=== PATIENT | male | born 1995 | race African-American/Black ===

== ENCOUNTER 2018-05-13 19:30 | Inpatient (IN) | payer OTHER ==
[~2018-05-13] VITALS: Ht 185.4 cm; Wt 81.6 kg
[~2018-05-13 19:30] MED LIST: ASPIRIN 81 MG CHEW TAB PO ONE; ONDANSETRON HCL INJ 2 MG/ML VIAL IV STA; SODIUM CHLORIDE 0.9% 1000ML 1,000 ML IV STA
[2018-05-13] MEDS ORDERED: SODIUM CHLORIDE 0.9% 1000ML 1,000 ML IV STA (19:32)
[2018-05-13] MEDS ORDERED: DICYCLOMINE HCL 20 MG/2 ML VIAL IM ONE (19:45)
[2018-05-13 20:35] LABS: BASOPHILS # (AUTO) 0.1 (0.0-0.1); BASOPHILS % 0.4 % (0.0-1.0); HEMATOCRIT 49.8 % (38.2-49.6); HEMOGLOBIN 17.3 g/dL (14.0-18.0); LYMPHOCYTES # (AUTO) 1.5 (1.0-3.2); MEAN CORPUSCULAR HEMOGLOBIN 31.6 pg (28-32); MEAN CORPUSCULAR HGB CONC 34.7 g/dL (31-35); MEAN CORPUSCULAR VOLUME 90.9 fL (81-99); MONOCYTES # (AUTO) 1.5 (0.2-0.8); MONOCYTES % 7.1 % (4.4-11.3); NEUTROPHILS # (AUTO) 18.1 (2.1-6.9); PLATELET COUNT 246 x10e3/uL (140-360); RED BLOOD COUNT 5.48 x10e6/uL (4.3-5.7); RED CELL DISTRIBUTION WIDTH 11.5 % (11.7-14.4)
[2018-05-13 20:52] LABS: ALBUMIN 6.4 g/dL (3.5-5.0); ALBUMIN/GLOBULIN RATIO 1.5 (0.8-2.0); ANION GAP 27.2 mmol/L (8-16); CALCIUM 12.6 mg/dL (8.4-10.2); CREATININE, SERUM 3.2 mg/dL (0.72-1.25); POTASSIUM 4.2 mmol/L (3.5-5.1)
[2018-05-13 21:00] LABS: CREATINE KINASE MB 0.9 ng/mL (0-5.0)
[2018-05-13] MEDS ORDERED: ONDANSETRON HCL INJ 2 MG/ML VIAL IV PRN (21:00)
[2018-05-13 21:21] LABS: LYMPHOCYTES % (MANUAL) 5 % (19-48); MONOCYTES % (MANUAL) 7 % (3.4-9.0); NEUTROPHILS % (MANUAL) 87 % (40-74); PLATELET ESTIMATE ADEQUATE; PLATELET MORPHOLOGY COMMENT NORMAL; RBC MORPHOLOGY COMMENT NORMAL
[2018-05-13 22:22] VITALS: BP 156/83
[2018-05-13] MEDS: SODIUM CHLORIDE 0.9% 1000ML 1,000 ML IV SCH (22:44)
[2018-05-13 23:27] VITALS: BP 156/83
[2018-05-13 23:28] VITALS: BP 156/83
[2018-05-14] VITALS (8 sets, daily range): BP systolic 113–148; BP diastolic 55–63
[2018-05-14] MEDS: SODIUM CHLORIDE 0.9% 1000ML 1,000 ML IV SCH ×4 (04:54→23:50)
[2018-05-14 05:39] LABS: BASOPHILS # (AUTO) 0.1 (0.0-0.1); BASOPHILS % 0.4 % (0.0-1.0); EOSINOPHILS % 0.1 % (0.0-6.0); HEMATOCRIT 37.4 % (38.2-49.6); HEMOGLOBIN 12.7 g/dL (14.0-18.0); LYMPHOCYTES # (AUTO) 2.2 (1.0-3.2); LYMPHOCYTES % 19.5 % (18.0-39.1); MEAN CORPUSCULAR VOLUME 94.2 fL (81-99); MONOCYTES # (AUTO) 0.9 (0.2-0.8); MONOCYTES % 7.8 % (4.4-11.3); NEUTROPHILS # (AUTO) 8.2 (2.1-6.9); NEUTROPHILS % 71.8 % (38.7-80.0); PLATELET COUNT 185 x10e3/uL (140-360); RED BLOOD COUNT 3.97 x10e6/uL (4.3-5.7); RED CELL DISTRIBUTION WIDTH 11.5 % (11.7-14.4)
[2018-05-14 06:05] LABS: ALANINE AMINOTRANSFERASE 12 IU/L (0-55); ALKALINE PHOSPHATASE 60 IU/L (40-150); ANION GAP 13.6 mmol/L (8-16); BLOOD UREA NITROGEN 22 mg/dL (7-26); BUN/CREATININE RATIO 14 (6-25); CARBON DIOXIDE 21 mmol/L (22-29); CHLORIDE 107 mmol/L (98-107); CREATININE, SERUM 1.61 mg/dL (0.72-1.25); EST GLOMERULAR FILTRATION RATE > 60 ML/MIN (60-); GLUCOSE 80 mg/dL (74-118); POTASSIUM 3.6 mmol/L (3.5-5.1); SODIUM 138 mmol/L (136-145)
[2018-05-14 06:24] LABS: ALBUMIN/GLOBULIN RATIO 1.4 (0.8-2.0)
[2018-05-14 08:16] LABS: CREATINE KINASE MB 1.3 ng/mL (0-5.0)
[2018-05-14] MEDS: FAMOTIDINE 20 MG TAB PO SCH (17:13)
[2018-05-15 03:21] LABS: BASOPHILS # (AUTO) 0.1 (0.0-0.1); BASOPHILS % 0.7 % (0.0-1.0); EOSINOPHILS # (AUTO) 0.1 (0.0-0.4); EOSINOPHILS % 0.7 % (0.0-6.0); HEMATOCRIT 36.7 % (38.2-49.6); HEMOGLOBIN 12.3 g/dL (14.0-18.0); LYMPHOCYTES # (AUTO) 2.2 (1.0-3.2); LYMPHOCYTES % 25.4 % (18.0-39.1); MEAN CORPUSCULAR HEMOGLOBIN 32.2 pg (28-32); MEAN CORPUSCULAR HGB CONC 33.5 g/dL (31-35); MEAN CORPUSCULAR VOLUME 96.1 fL (81-99); MONOCYTES # (AUTO) 0.6 (0.2-0.8); MONOCYTES % 7.1 % (4.4-11.3); NEUTROPHILS # (AUTO) 5.6 (2.1-6.9); NEUTROPHILS % 65.7 % (38.7-80.0); PLATELET COUNT 155 x10e3/uL (140-360); RED BLOOD COUNT 3.82 x10e6/uL (4.3-5.7); RED CELL DISTRIBUTION WIDTH 11.5 % (11.7-14.4)
[2018-05-15 03:37] LABS: ANION GAP 11.1 mmol/L (8-16); BLOOD UREA NITROGEN 14 mg/dL (7-26); BUN/CREATININE RATIO 13 (6-25); CALCIUM 8.9 mg/dL (8.4-10.2); CARBON DIOXIDE 21 mmol/L (22-29); CHLORIDE 112 mmol/L (98-107); CREATINE KINASE 1180 IU/L (30-200); CREATININE, SERUM 1.04 mg/dL (0.72-1.25); EST GLOMERULAR FILTRATION RATE > 60 ML/MIN (60-); GLUCOSE 83 mg/dL (74-118); MAGNESIUM 1.8 MG/DL (1.3-2.1); POTASSIUM 4.1 mmol/L (3.5-5.1); SODIUM 140 mmol/L (136-145)
[2018-05-15 05:00] VITALS: BP 143/65
[2018-05-15] MEDS: SODIUM CHLORIDE 0.9% 1000ML 1,000 ML IV SCH (06:27)
[2018-05-15 08:00] VITALS: BP 123/69
[2018-05-15 08:11] VITALS: BP 123/69
[2018-05-15] MEDS: FAMOTIDINE 20 MG TAB PO SCH (08:11)
--- NOTE | 2018-05-16 04:21 | Discharge Summary ---
ADMISSION DIAGNOSES 1. Dehydration with . 2. Acute kidney injury. 3. Nausea, vomiting. 4. Bradycardia. DISCHARGE DIAGNOSES 1. Dehydration with . 2. Acute kidney injury. 3. Nausea, vomiting. 4. Bradycardia. Patient has no medical history and no surgical history. HOSPITAL COURSE: A 22-year-old male, who complains of body cramps and nausea that began at work yesterday while working on a [employer]. Yesterday was his 1st day and he was unaware that he could not leave for lunch, so he did not bring a lunch to work. He says he drank about 10 bottles of water. He denies dizziness, fever, and diarrhea. Symptoms resolved at the ER with IV fluids. On admission, CK was 323, CK-MB is 0.9, creatinine of 3.2. With IV fluids, the acute kidney injury continued to improve and the CK-MB peaked on day 3. Nausea and vomiting has resolved. Bradycardia resolved as well. Patient is tolerating food and has no more complaints. After continuous fluid, patient is ready to discharge home. We discussed the importance of eating and hydration while outside working. Patient understands discharge instructions and agrees with discharge plan. He will discharge home and follow up with [facility] 1[facility]2 weeks. Dictated By: Zoie Mota NP Job#: [id number]
== END 2018-05-15 11:13 | disposition home or self-care (01) | DRG 683 ==
LOC: ER 19:30 → ERHOLD 20:56 → MED/SURG3 22:27
PROVIDERS: ADMIT Internal Medicine; ATTEND Internal Medicine
DX: N17.9 Acute kidney failure, unspecified (principal); M62.82 Rhabdomyolysis; E86.0 Dehydration; R00.1 Bradycardia, unspecified; R11.2 Nausea with vomiting, unspecified; D72.829 Elevated white blood cell count, unspecified; Z28.21 Immunization not carried out because of patient refusal
CPT/HCPCS: 36415; 80048; 80053; 82550; 82553; 83735; 84484; 85025; 93005; 96361; 99284; J0500; J2405; J7030